=== PATIENT | male | born 1965 | race Caucasian/White ===

== ENCOUNTER → 2021-03-16 | Outpatient (CLI) | payer OTHER ==
[~2021-03-16] MED LIST: NAPROSYN500 MG PO; NOHOMEMEDICATIONS; NORCO 5-325 TA1 EACH PO; TAMSULOSIN HCL0.4 M1 PO; ZOFRAN ODT4 MG PO
== END ==
LOC: HYPER 08:11
PROVIDERS: ATTEND Emergency Medicine
DX: T81.31XA Disruption of external operation (surgical) wound, not elsewhere classified, initial encounter (principal); S98.121A Partial traumatic amputation of right great toe, initial encounter; L97.522 Non-pressure chronic ulcer of other part of left foot with fat layer exposed; I82.409 Acute embolism and thrombosis of unspecified deep veins of unspecified lower extremity; D68.4 Acquired coagulation factor deficiency; E66.9 Obesity, unspecified; I10 Essential (primary) hypertension; D68.51 Activated protein C resistance; F17.200 Nicotine dependence, unspecified, uncomplicated; Z68.34 Body mass index [BMI] 34.0-34.9, adult; Z79.02 Long term (current) use of antithrombotics/antiplatelets; W31.9XXA Contact with unspecified machinery, initial encounter; Y93.89 Activity, other specified; Y92.89 Other specified places as the place of occurrence of the external cause; Y99.8 Other external cause status; Y92.238 Other place in hospital as the place of occurrence of the external cause; Y83.8 Other surgical procedures as the cause of abnormal reaction of the patient, or of later complication, without mention of misadventure at the time of the procedure

== ENCOUNTER → 2021-03-30 | Outpatient (CLI) | payer OTHER | LOC: HYPER 07:57 | PROVIDERS: ATTEND Emergency Medicine | DX: T81.31XD Disruption of external operation (surgical) wound, not elsewhere classified, subsequent encounter (principal); S98.1 Traumatic amputation of one toe; D68.4 Acquired coagulation factor deficiency; I82.409 Acute embolism and thrombosis of unspecified deep veins of unspecified lower extremity; D68.51 Activated protein C resistance; E66.9 Obesity, unspecified; I10 Essential (primary) hypertension; F17.200 Nicotine dependence, unspecified, uncomplicated; Z68.34 Body mass index [BMI] 34.0-34.9, adult; Z79.02 Long term (current) use of antithrombotics/antiplatelets; Z79.01 Long term (current) use of anticoagulants; Z89.411 Acquired absence of right great toe; Z79.899 Other long term (current) drug therapy; Y83.8 Other surgical procedures as the cause of abnormal reaction of the patient, or of later complication, without mention of misadventure at the time of the procedure; W28.XXXD Contact with powered lawn mower, subsequent encounter ==

== ENCOUNTER → 2021-04-20 | Outpatient (CLI) | payer OTHER | LOC: HYPER 08:02 | PROVIDERS: ATTEND Emergency Medicine | DX: T87.81 Dehiscence of amputation stump (principal); S98.1 Traumatic amputation of one toe; D68.4 Acquired coagulation factor deficiency; I82.409 Acute embolism and thrombosis of unspecified deep veins of unspecified lower extremity; D68.51 Activated protein C resistance; I10 Essential (primary) hypertension; E66.9 Obesity, unspecified; F17.200 Nicotine dependence, unspecified, uncomplicated; Z68.34 Body mass index [BMI] 34.0-34.9, adult; Z79.02 Long term (current) use of antithrombotics/antiplatelets; Z79.01 Long term (current) use of anticoagulants; Z79.899 Other long term (current) drug therapy; X58.XXXD Exposure to other specified factors, subsequent encounter; Y83.5 Amputation of limb(s) as the cause of abnormal reaction of the patient, or of later complication, without mention of misadventure at the time of the procedure ==